=== PATIENT | male | born 1980 | race Caucasian/White ===

== ENCOUNTER 2018-06-26 18:09 | Inpatient (IN) ==
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
[2018-06-26 19:58] LABS: Baso % (Auto) 0.5 % (0.0-2.0); Eos # (Auto) 0.1 th/mm3 (0.0-0.4); Eos % (Auto) 1.4 % (0.0-4.0); Hematocrit 39.5 % (39.0-51.0); Hemoglobin 13.7 gm/dL (13.0-17.0); Lymph # (Auto) 1.5 th/mm3 (1.0-4.8); Mean Corpuscular HGB Conc 34.7 % (32.0-36.0); Mean Corpuscular Volume 89.3 fL (80.0-100.0); Mono # (Auto) 0.6 th/mm3 (0.0-0.9); Mono % (Auto) 6.9 % (0.0-8.0); Neut # (Auto) 6.4 th/mm3 (1.8-7.7); Neut % (Auto) 74.2 % (16.0-70.0); Platelet Count 233 th/mm3 (150-450); Red Blood Count 4.42 mil/mm3 (4.50-5.90); White Blood Count 8.6 th/mm3 (4.0-11.0)
[2018-06-26 20:12] LABS: Anion Gap 8 meq/L (5-15)
[2018-06-26 20:38] LABS: Alanine Aminotransferase 36 U/L (12-78); Albumin 4.1 g/dL (3.4-5.0); Alkaline Phosphatase 33 U/L (45-117); Aspartate Aminotransferase 26 U/L (15-37); Blood Urea Nitrogen 12 mg/dL (7-18); Calcium 8.8 mg/dL (8.5-10.1); Carbon Dioxide 24.1 meq/L (21.0-32.0); Chloride 110 meq/L (98-107); Glomerular Filtration Rate 87 mL/min (>89); Glucose,Random 89 mg/dL (74-106); Magnesium 2.1 mg/dL (1.5-2.5); Potassium 3.9 meq/L (3.5-5.1); Sodium 142 meq/L (136-145); Total Protein 7.6 g/dL (6.4-8.2)
[2018-06-26] MEDS ORDERED: clonazePAM 1 MG Tablet PO ONE (20:52)
[2018-06-26] MEDS ORDERED: Baclofen 10 MG Tablet PO ONE (20:52)
[2018-06-26 21:34] LABS: Bilirubin,Urine Negative (Negative); Clarity,Urine Hazy (Clear); Color,Urine Yellow (Yellw/Straw); Glucose,Urine (UA) Negative (Negative); Leukocyte Esterase,Urine Negative (Negative); Nitrite,Urine Negative (Negative); Specific Gravity,Urine 1.014 (1.002-1.035)
[2018-06-26 21:35] LABS: Amphetamine Screen,Urine Neg (Neg); Barbiturate Screen,Urine Neg (Neg); Cannabinoid Screen,Urine Pos (Neg); Cocaine Screen,Urine Neg (Neg)
[2018-06-26 21:36] LABS: Opiate Screen,Urine Neg (Neg)
[2018-06-27] MEDS ORDERED: Aluminum/Magnesium/Simethacone Susp 30 ML UDC PO PRN (16:55)
[2018-06-27] MEDS ORDERED: LORazepam 0.5 MG Tablet PO PRN (16:55)
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
[2018-06-27] MEDS: clonazePAM 1 MG Tablet PO SCH (23:08)
[2018-06-28] MEDS ORDERED: clonazePAM 1 MG Tablet PO SCH (01:00)
[2018-06-28] MEDS ORDERED: Baclofen 10 MG Tablet PO SCH (01:00)
[2018-06-28 07:59] LABS: Anion Gap 8 meq/L (5-15); Blood Urea Nitrogen 9 mg/dL (7-18); Calcium 8.5 mg/dL (8.5-10.1); Chloride 106 meq/L (98-107); Glomerular Filtration Rate Greater Than 89 mL/min (>89); Glucose,Random 77 mg/dL (74-106); Potassium 3.5 meq/L (3.5-5.1); Sodium 144 meq/L (136-145)
[2018-06-28 08:02] LABS: Chol/HDL Ratio 2.38 Ratio; Cholesterol 164 mg/dL (120-200); HDL Cholesterol 68.8 mg/dL (40.0-60.0); LDL Cholesterol,Calculated 81 mg/dL (0-99); Triglycerides 70 mg/dL (42-150)
[2018-06-28] MEDS: DIMETHYL FUMARATE 240 MG PO SCH ×3 (08:32→23:58)
[2018-06-28] MEDS: Baclofen 10 MG Tablet PO SCH (08:33)
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
--- NOTE | 2018-06-28 18:32 | P.CONNEU ---
History of Present Illness Service: Neurology Primary Care Provider: Neville Ba MD Chief Complaint: Multiple sclerosis History of Present Illness: 38-year-old male admitted to psychiatry unit with a history of multiple sclerosis. Patient was diagnosed with MS he states that 6 years ago but thinks he had symptoms in his teens. Follows up with outpatient neurology locally who is been seen for the past several years. He was on Rebif but had side effects to it. Most recently was started on Tecfidera but states that side effects to it and stopped it. He currently is not interested in trying anything new and will consider again in the outpatient setting with his local neurologist. States he occasionally has gait imbalance and migratory paresthesias from MS. Currently feels that he stable from that standpoint. Review of Systems All other systems reviewed negative except as stated in HPI PMFSH - History History Provided By: Patient - Tobacco History Smoking Status: Never smoker - Alcohol History How Often Do You Have a Drink Containing Alcohol: Never - Substance Use History Substance History: No History of Abuse - Immunization History Tetanus Immunization: Unsure Medications and Allergies Active Medications: Active Medications Al Hydrox/Mg Hydrox/Simethicone (Mag-Al Plus Susp Liq) 30 ml PO Q6H PRN PRN Reason: DYSPEPSIA Al Hydroxide/Mg Hydroxide (Milk Of Magnesia Liq) 30 ml PO Q12H PRN PRN Reason: Mild Constipation Baclofen (Lioresal) 10 mg PO DAILY [facility] Last Admin: 06/28/18 08:33 Dose: Not Given Clonazepam (Klonopin) 2 mg PO HS [facility] Last Admin: 06/27/18 23:08 Dose: Not Given Duloxetine HCl (Cymbalta) 30 mg PO BID [facility] Last Admin: 06/28/18 08:34 Dose: Not Given Lactulose (Lactulose Liq) 30 ml PO DAILY PRN PRN Reason: SEVERE CONSITIPATION Lorazepam (Ativan) 0.5 mg PO Q12H PRN PRN Reason: MODERATE TO SEVERE ANXIETY Pt Own Med: Dimethyl Fumarate [ Tecfidera] 240 Mg Po Bid 0 each PO BID [facility] Last Admin: 06/28/18 08:32 Dose: Not Given Sennosides (Senokot) 17.2 mg PO Q12H PRN PRN Reason: Moderate Constipation Allergies Allergy/AdvReac Type Severity Reaction Status Date / Time No Allergy Information Allergy Unverified 06/26/18 19:08 Available Home Medications Medication Instructions Recorded Confirmed Type baclofen 10 mg PO DAILY 06/26/18 06/26/18 History clonazepam 2 mg PO HS 06/26/18 06/26/18 History dimethyl fumarate [Tecfidera] 240 mg PO BID 06/26/18 06/26/18 History duloxetine 30 mg PO BID 06/26/18 06/26/18 History Exam Vital signs: Vital Signs 06/28/18 05:55 Temperature 98.8 F Pulse Rate 66 Respiratory Rate 16 Blood Pressure 119/58 L Pulse Oximetry 96 Intake & Output 06/27/18 06/28/18 06/28/18 18:59 06:59 18:59 Weight 88.451 kg Other: Weight On Admission 88.451 kg Narrative: GENERAL: in NAD, SKIN: Warm and dry. HEAD: Atraumatic. Normocephalic. EYES: Pupils equal and round. No scleral icterus. ENT: No nasal bleeding or discharge. Mucous membranes pink and moist. NECK: Trachea midline. No JVD. RESPIRATORY: No accessory muscle use. GASTROINTESTINAL: Abdomen soft, non-tender, nondistended. MUSCULOSKELETAL: Extremities without clubbing, cyanosis, or edema. No obvious deformities. NEUROLOGICAL: Awake and alert. Oriented x3 no aphasia, fluent articulate, No facial asymmetry, OU 3-2mm, eomi, VFF, No drift, Motor grossly within normal limits. Five out of 5 muscle strength in the arms and legs. Reflexes 2+ lower extremity no clonus PSYCHIATRIC: Calm, monotone, reserved - Constitutional no acute distress - Routine HEENT Exam Head: Present: normocephalic Eye: Present: EOMI Results - Labs CBC & Chem 7: 06/26/18 18:27 06/28/18 06:15 Labs: Laboratory Results - last 24 hr 06/28/18 06:15 Sodium 144 Potassium 3.5 Chloride 106 Carbon Dioxide 30.0 Anion Gap 8 BUN 9 Creatinine 0.91 Estimated GFR Greater than 89 Random Glucose 77 Calcium 8.5 Triglycerides 70 Cholesterol 164 LDL Cholesterol, Calc 81 HDL Cholesterol 68.8 H Cholesterol/HDL Ratio 2.38 Review/Management - Diagnosis (1) Multiple sclerosis Code(s): G35 - Multiple sclerosis Status: Acute Current Visit: Yes - Review/Management Plan: Chronic multiple sclerosis with apparent lesions in the brain and spinal cord per patient. MS appears currently stable Recommendations patient declines any new MS treatment and wants to consider it in the outpatient setting with his local neurologist. No active MS issues at this time we will sign off contact us as necessary
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
[2018-06-28] MEDS: clonazePAM 1 MG Tablet PO SCH ×2 (21:26→23:58)
[2018-06-29 05:41] VITALS: BP 123/68; PULSE 54; RESP 16; TEMP 98.2; O2SAT 98
[2018-06-29] MEDS: Baclofen 10 MG Tablet PO SCH (08:12)
[2018-06-29] MEDS: DIMETHYL FUMARATE 240 MG PO SCH (08:12)
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
== END 2018-06-29 11:30 | disposition home or self-care (01) ==
LOC: NEDAMB 18:09 → NEDA 06-27 16:56 → H260 06-27 18:30
PROVIDERS: ADMIT Student in an Organized Health Care Education/Training Program; ATTEND Student in an Organized Health Care Education/Training Program